=== PATIENT | male | born 1970 | race Caucasian/White ===

== ENCOUNTER → 2017-07-20 | Outpatient (CLI) | payer BC ==
[2014-05-19 14:20] VITALS: BP 156/78
[~2017-07-20] MED LIST: AMOX875T PO; GLUC1TAB71 PO; HYDR-2762 PO; IBUP-1027 PO
--- NOTE | 2017-07-20 16:19 | KCIC ---
Indication: Low back pain for 3 months. Time of exam 3:47 PM Curvature and alignment is normal. The vertebral body heights and disc spaces are well-maintained. No spondylolysis or spondylolisthesis is detected. No fractures are seen. IMPRESSION: No acute bony abnormality is detected. Electronically signed by: Edgardo Schmitz MD (07/20/2017 4:16 PM) [id number]
== END | disposition home or self-care (01) ==
LOC: KCIC 15:41
PROVIDERS: ATTEND Family Medicine
DX: M54.5 Low back pain (principal)
CPT/HCPCS: 72110